=== PATIENT | male | born 2000 | race Caucasian/White ===

== ENCOUNTER 2025-02-20 13:08 | Emergency (ER) | payer OTHER ==
[~2025-02-20] VITALS: Ht 180.3 cm; Wt 78.6 kg
[2025-02-20 13:21] VITALS: TEMP 97.9
[2025-02-20 15:37] VITALS: BP 131/75; PULSE 75; RESP 18; O2SAT 98
== END 2025-02-20 15:37 | disposition home or self-care (01) ==
LOC: EMS 13:12
DX: S60.221A Contusion of right hand, initial encounter (principal); W22.09XA Striking against other stationary object, initial encounter; Y93.89 Activity, other specified; Y92.89 Other specified places as the place of occurrence of the external cause; Y99.8 Other external cause status
CPT/HCPCS: 73502; 99284